=== PATIENT | female | born 1975 | race Caucasian/White ===

== ENCOUNTER 2016-05-27 08:01 | Emergency (ER) | payer SELFPAY ==
[~2016-05-27] VITALS: Ht 170.2 cm; Wt 113.4 kg
--- NOTE | 2016-05-27 08:05 | NUR ---
aaox3, bibra 80 c/o right ankle pain and swelling s/p slipped on a curb. -ko. cms wnl. resp is even and unlabored with nad noted. skin is warm and dry. [facility] LAC #18g noted [employer]. 4mg morphine given in the field. Dr Villagomez at [facility] for eval.
[2016-05-27] MEDS ORDERED: ONDANSETRON HCL/PF 4 MG/2 ML VIAL ONE (08:14)
[2016-05-27] MEDS ORDERED: HYDROMORPHONE 1 MG/1 ML DISP.SYRIN ONE ×3 (08:14→10:58)
[2016-05-27] MEDS ORDERED: ONDANSETRON HCL/PF - ER 4 MG/2 ML VIAL IV ONE (08:30)
[2016-05-27] MEDS ORDERED: HYDROMORPHONE 1 MG/1 ML DISP.SYRIN IV ONE ×3 (08:30→11:00)
[2016-05-27] MEDS ORDERED: PROPOFOL 20 ML IV ONE (08:48)
[2016-05-27] MEDS ORDERED: IV SET PRIMARY 1 EA INFUS.SET MC ONE (08:48)
[2016-05-27] MEDS ORDERED: IV NS 0.9% 1,000 ML ONE (08:48)
--- NOTE | 2016-05-27 08:52 | NUR ---
PT SIGNED CONSENT FOR CLOSED REDUCTION MODERATE SEDATION
[2016-05-27] MEDS ORDERED: PROPOFOL 200 MG/20 ML VIAL IV ONE ×2 (09:00→09:30)
[2016-05-27] MEDS ORDERED: IV NS 0.9% 500 ML IV ONE (09:00)
--- NOTE | 2016-05-27 09:31 | NUR ---
Duplicate order for diprivan. One of the orders has no dosage. Pharmacy re-order the medication with the right dosage given (160mg).
--- NOTE | 2016-05-27 10:30 | NUR ---
Patient is resting comfortably in bed with eyes closed. Easily aroused. VSS
--- NOTE | 2016-05-27 11:10 | NUR ---
IV removed. Catheter intact and site benign. Pressure and 4x4 applied to site. No bleeding noted.Patient discharged to home in stable condition. Written and verbal after care instructions given. Patient verbalizes understanding of instruction.
[2016-05-27 11:17] VITALS: BP 122/69
== END 2016-05-27 11:18 | disposition home or self-care (01) ==
LOC: ER 08:04
DX: S82.451A Displaced comminuted fracture of shaft of right fibula, initial encounter for closed fracture (principal); J45.909 Unspecified asthma, uncomplicated; M54.5 Low back pain; G89.29 Other chronic pain; Z88.0 Allergy status to penicillin; F31.9 Bipolar disorder, unspecified; F17.200 Nicotine dependence, unspecified, uncomplicated; W18.40XA Slipping, tripping and stumbling without falling, unspecified, initial encounter; Y93.89 Activity, other specified; Y92.89 Other specified places as the place of occurrence of the external cause; Y99.8 Other external cause status
CPT/HCPCS: 27788; 73600 ×2; 96361; 96374; 96375; 96376; 99152; 99285; A4606; J1170 ×3; J2405; J2704; J7030; Z7610